=== PATIENT | female | born 1975 | race Caucasian/White ===

== ENCOUNTER → 2016-08-01 | Outpatient (CLI) | payer BC ==
[~2016-08-01] MED LIST: BACTRIM DS 8001 TA1 PO; CIPROFLOXACIN500 MG PO; DULCOLAX10 MG PO; IBUPROFEN 30 M800 MG PO; LASIX40 MG PO; MYLICON, MYLANT80 MG PO; NAPROSYN500 MG PO; NKHM; PERCOCET 325 MG1 TA2 PO; PERCOCET 325 MG1 TA5 PO; POTASSIUM CHLORIDE PO; TRAMADOL HCL50 MG PO; VICODIN ES 7501 TAB PO
--- NOTE | ~2016-08-01 | ST ---
[place], [place] EXERCISE STRESS TEST REPORT NAME: SUDHAKAR MATTHEW [facility] #: [id number] UNIT #: [id number] ROOM: DOCTOR: MYRTLE KEY MD BIRTHDATE: [birth year] DOS: 08/01/2016 STUDY: Exercise treadmill stress test. REFERRING PHYSICIAN: [facility]. INDICATIONS: Atypical chest pain. The patient's baseline EKG showed normal sinus rhythm, nonspecific ST-T wave changes. The patient's baseline heart rate was 99 with a blood pressure 148/88. The patient exercised for a total of 6 minutes and 32 seconds. Maximum heart rate achieved was 167, which represents 92% of maximum predicted. The patient was noted to have [address] depressions in the inferolateral leads with nonlimiting chest pressure at peak. The patient's peak activity level is 7 METs. The patient's peak blood pressure is 168/92. SUMMARY OF FINDINGS: 1. Abnormal treadmill stress test with [address] depression in the inferolateral leads with exertional chest pain noted that was nonlimiting at peak. 2. The patient's Casey Treadmill score is -2.5 and portending intermediate risk stress. 3. Would recommend further evaluation with the addition of perfusion scan imaging. MYRTLE KEY MD CM:STRESS:EXERCISE STRESS TEST REPORT [id number] MYRTLE KEY MD
== END | disposition home or self-care (01) ==
LOC: CARD 02:54
DX: R07.89 Other chest pain (principal)

== ENCOUNTER → 2016-08-05 | Outpatient (CLI) | payer BC ==
--- NOTE | ~2016-08-05 | ST ---
[place], [place] EXERCISE STRESS TEST REPORT [id number] UNIT #: [id number] ROOM: DOCTOR: KARLEE GOMES MD BIRTHDATE: [birth year] DOS: 08/05/2016 PHARMACOLOGIC STRESS TEST INDICATIONS: Chest pain. PROCEDURE: The patient was given a rapid infusion of regadenoson 0.4 mg intravenously followed by a saline flush. She experienced nausea and an unusual sensation with dyspnea. Her resting heart rate of 89 aylin to 136. The resting blood pressure of 116/82 aylin to 158/94. Her resting electrocardiogram showed sinus rhythm. She had a normal tachycardic heart rate response to the infusion and no diagnostic electrocardiographic changes were noted. Forty seconds after the infusion of regadenoson, radionuclide was administered. IMPRESSION: 1. Well tolerated infusion of regadenoson. 2. Radionuclide administered. Please see the separate imaging report for further details of the patient's stress test results. KARLEE GOMES MD CM:STRESS:EXERCISE STRESS TEST REPORT [id number] KARLEE GOMES MD
== END | disposition home or self-care (01) ==
LOC: CARD 02:45
DX: R94.39 Abnormal result of other cardiovascular function study (principal); R07.89 Other chest pain

== ENCOUNTER → 2016-09-08 | Outpatient (CLI) | payer BC | END | disposition home or self-care (01) | LOC: CARD 08:16 | DX: I08.1 Rheumatic disorders of both mitral and tricuspid valves (principal); R07.89 Other chest pain ==

== ENCOUNTER → 2016-10-03 | Outpatient (CLI) | payer BC ==
[2016-10-03 18:53] LABS: BASO % 0.5 % (0.0-1.0); HEMATOCRIT 38.9 % (37.0-47.0); HEMOGLOBIN 13.2 g/dl (12.0-16.0); MEAN CELL VOLUME 86.4 fl (81.0-99.0); MEAN CORPUSCULAR HGB 29.3 pg (27.0-31.0); MEAN CORPUSCULAR HGB CONC 33.9 g/dl (33.0-37.0); MONO # 0.7 10*3/uL (0.1-1.0); MONO % 8.2 % (3.0-9.0); NEUT # 5.5 10*3/uL (2.3-7.9); NEUT % 67.1 % (47.0-73.0); PLATELET COUNT AUTOMATED 265 10*3/uL (130-400); RED CELL DISTRI WIDTH 12.1 % (0-14.5); WHITE BLOOD COUNT 8.2 10*3/uL (4.8-10.8)
[2016-10-03 19:13] LABS: ALBUMIN 3.8 gm/dl (3.1-4.5); ALKALINE PHOSPHATASE 109 U/L (45-117); BILIRUBIN, TOTAL 0.4 mg/dl (0.2-1.0); BUN 10 mg/dl (7-24); CARBON DIOXIDE 29 mmol/L (21-32); CHLORIDE 102 mmol/L (98-107); EST GLOM FILT AFRICAN AMERICAN > 60 ml/min; GLUCOSE 111 mg/dL (65-99); POTASSIUM 3.5 mmol/L (3.5-5.1); SGOT/AST 11 IU/L (3-35); SGPT/ALT 19 U/L (12-78); SODIUM 138 mmol/L (136-145); TOTAL PROTEIN 7.5 gm/dL (6.4-8.2)
== END | disposition home or self-care (01) ==
LOC: LAB 17:46
PROVIDERS: Family Medicine Adult Medicine
DX: N39.0 Urinary tract infection, site not specified (principal); R05 Cough; R31.9 Hematuria, unspecified; R80.9 Proteinuria, unspecified; R09.89 Other specified symptoms and signs involving the circulatory and respiratory systems

== ENCOUNTER → 2016-10-28 | Outpatient (CLI) | payer BC ==
--- NOTE | ~2016-10-28 | PF ---
[place], [place] PULMONARY FUNCTION TEST NAME: SUDHAKAR MATTHEW UNIT #: [id number] ROOM: DOCTOR: SHAHNAZ ZAMUDIO MD,BALBINA BIRTHDATE: [birth year] DOS: 10/30/2016 The test was ordered by Dr. Laisha Claros. HISTORY: The patient was noted as a 41-year-old outpatient, female, height of 60 inches, weight of 212 pounds, BMI of 41.4. The patient reported symptoms of chronic cough, which was noted nonproductive. Symptoms of dyspnea with exertion rare wheezing were also noted. Tobacco use. SPIROMETRY: The FVC was noted 2.95 liters as 91% predicted value normal. FEV1 was noted 2.50 liters, 94% predicted value normal. Ratio of FEV1/FVC was recorded as 85%. Flow volume loop was noted normal. Lung volume; thoracic gas volume recorded 56%, residual volume of 84%, total lung capacity 92%. Lung volumes were noted normal. The lung diffusion noted normal. The patient's airway resistance, passive conductance noted normal. IMPRESSION: Normal pulmonary function testing with history of chronic nonproductive cough and other respiratory symptom. If the diagnosis of bronchial asthma is still considered with the clinical history, the patient was recommended about methacholine challenge testing or additional assessment for that. BALBINA CHRISTIE MD CM:PFREPORT:PULMONARY FUNCTION TEST [id number] BALBINA ZAMUDIO MD
== END | disposition home or self-care (01) ==
LOC: CP 07:01
DX: R05 Cough (principal)

== ENCOUNTER → 2017-12-04 | Outpatient (CLI) | payer BC ==
--- NOTE | ~2017-12-04 | ST ---
[place], [place] EXERCISE STRESS TEST REPORT NAME: SUDHAKAR MATTHEW UNIT #: [id number] ROOM: DOCTOR: KARLEE GOMES MD BIRTHDATE: [birth year] DOS: 12/04/2017 EXERCISE STRESS TEST INDICATIONS: Irregular heart, dyspnea, chest discomfort. PROCEDURE: The patient walked for 9 minutes on a full Refugio protocol stress test and stopped for fatigue. She did not have any chest pain, nausea or unusual dyspnea. Her resting heart rate of 72 aylin to a peak of 195, which represented 108% of her maximum predicted heart rate at a workload of 10 METS. Her resting blood pressure 120/84 aylin to 156/78. She stopped for fatigue. The resting electrocardiogram was normal. With exercise, she had up to [address] segment depression in the lateral leads; however, the ST segment depressions resolved within less than 1 minute of recovery. Casey treadmill score was -1, which represents an intermediate risk. Clinically, however, this was a normal stress test with excellent exercise capacity. IMPRESSION: 1. Excellent exercise capacity without chest pain. The patient did have EKG changes, which resolved in less than a minute of recovery. 2. Low risk exercise stress test. KARLEE GOMES MD CM:STRESS:EXERCISE STRESS TEST REPORT [id number] KARLEE GOMES MD
== END | disposition home or self-care (01) ==
LOC: CARD 01:38
DX: I49.9 Cardiac arrhythmia, unspecified (principal); R06.00 Dyspnea, unspecified

== ENCOUNTER 2019-06-23 07:42 | Emergency (ER) | payer OTHER ==
[~2019-06-23] VITALS: Ht 152.4 cm; Wt 92.1 kg
[2019-06-23 08:26] LABS: BASO # 0.1 10*3/uL (0.0-0.1); BASO % 1.1 % (0.0-1.0); EOS # 0.2 10*3/uL (0.0-0.4); EOS % 3.1 % (1.0-4.0); HEMATOCRIT 41.5 % (37.0-47.0); LYMPH # 1.2 10*3/uL (1.3-4.4); LYMPH % 22.4 % (27.0-41.0); MEAN CELL VOLUME 87.2 fl (81.0-99.0); MEAN CORPUSCULAR HGB 29.4 pg (27.0-31.0); MEAN CORPUSCULAR HGB CONC 33.7 g/dl (33.0-37.0); MONO # 0.4 10*3/uL (0.1-1.0); MONO % 7.5 % (3.0-9.0); NEUT # 3.6 10*3/uL (2.3-7.9); NEUT % 65.7 % (47.0-73.0); PLATELET COUNT AUTOMATED 261 10*3/uL (130-400); RED BLOOD COUNT 4.76 10*6/uL (4.10-5.10); RED CELL DISTRI WIDTH 12.1 % (0-14.5); WHITE BLOOD COUNT 5.5 10*3/uL (4.8-10.8)
[2019-06-23 08:33] LABS: ACT PARTIAL THROMBO TIME 24.9 SECONDS (20.0-32.1); INTERNATIONAL NORM RATIO 0.9 (2.0-3.5)
[2019-06-23 08:42] LABS: ALBUMIN 3.7 gm/dl (3.1-4.5); ALKALINE PHOSPHATASE 83 U/L (45-117); BUN 13 mg/dl (7-24); CHLORIDE 108 mmol/L (98-107); CREATININE 0.65 mg/dL (0.55-1.02); POTASSIUM 4.3 mmol/L (3.5-5.1); SGOT/AST 13 IU/L (3-35); SGPT/ALT 26 U/L (12-78); SODIUM 140 mmol/L (136-145); TOTAL PROTEIN 7.3 gm/dL (6.4-8.2)
[2019-06-23 08:43] LABS: TROPONIN I < 0.015 ng/ml (<0.045)
[2019-06-23 09:32] VITALS: BP 124/78
== END 2019-06-23 10:11 | disposition home or self-care (01) ==
LOC: ED 07:42
PROVIDERS: Emergency Medicine
DX: S20.229A Contusion of unspecified back wall of thorax, initial encounter (principal); R55 Syncope and collapse; R00.2 Palpitations; R06.02 Shortness of breath; M54.2 Cervicalgia; Z79.899 Other long term (current) drug therapy; Z90.710 Acquired absence of both cervix and uterus; Z88.1 Allergy status to other antibiotic agents; Z88.8 Allergy status to other drugs, medicaments and biological substances; Z90.49 Acquired absence of other specified parts of digestive tract; Z98.51 Tubal ligation status; W19.XXXA Unspecified fall, initial encounter; Y93.01 Activity, walking, marching and hiking; Y92.098 Other place in other non-institutional residence as the place of occurrence of the external cause; Y99.8 Other external cause status

== ENCOUNTER → 2019-07-19 | Outpatient (CLI) | payer OTHER | END | disposition home or self-care (01) | LOC: LAB 08:47 → CARD 09:00 | DX: I95.9 Hypotension, unspecified (principal); R00.0 Tachycardia, unspecified; R00.2 Palpitations; R55 Syncope and collapse; E55.9 Vitamin D deficiency, unspecified ==

== ENCOUNTER → 2019-08-08 | Outpatient (CLI) | payer OTHER ==
[2019-08-08 17:22] LABS: ALBUMIN 3.7 gm/dl (3.1-4.5); ALKALINE PHOSPHATASE 85 U/L (45-117); BUN 11 mg/dl (7-24); CHLORIDE 106 mmol/L (98-107); CREATININE 0.72 mg/dL (0.55-1.02); POTASSIUM 3.6 mmol/L (3.5-5.1); SGOT/AST 7 IU/L (3-35); SGPT/ALT 21 U/L (12-78); SODIUM 138 mmol/L (136-145); THYROXINE (T4) TOTAL 6.7 ug/dl (4.8-13.9); TOTAL PROTEIN 7.3 gm/dL (6.4-8.2)
[2019-08-08 17:28] LABS: THYROID STIM HORMONE (HS) 0.768 uIU/ml (0.358-4.75)
== END | disposition home or self-care (01) ==
LOC: LAB 16:05
PROVIDERS: Internal Medicine Cardiovascular Disease
DX: R55 Syncope and collapse (principal); I95.9 Hypotension, unspecified; R00.0 Tachycardia, unspecified; R00.2 Palpitations

== ENCOUNTER → 2021-01-21 | Outpatient (CLI) | payer OTHER | END | disposition home or self-care (01) | LOC: MAMMO 07:27 | PROVIDERS: ATTEND Nurse Practitioner Family | DX: Z12.31 Encounter for screening mammogram for malignant neoplasm of breast (principal) ==

== ENCOUNTER → 2021-02-07 | Outpatient (CLI) | payer OTHER | END | disposition home or self-care (01) | LOC: MAMMO 12:51 | PROVIDERS: ATTEND Nurse Practitioner Family | DX: N63.21 Unspecified lump in the left breast, upper outer quadrant (principal); N60.02 Solitary cyst of left breast; R92.8 Other abnormal and inconclusive findings on diagnostic imaging of breast ==

== ENCOUNTER → 2022-03-06 | Day surgery (SDC) | payer OTHER ==
[~2022-03-06] VITALS: Ht 152.4 cm; Wt 97.5 kg
[~2022-03-06] MED LIST changes: +VITAMIN D310 MC1 PO
[2022-03-06 08:24] VITALS: BP 107/64
[2022-03-06 08:39] VITALS: BP 141/93
[2022-03-06 08:52] VITALS: BP 149/90
== END | disposition home or self-care (01) ==
LOC: SDC 03-03 10:15
PROVIDERS: ATTEND Surgery
DX: Z12.11 Encounter for screening for malignant neoplasm of colon (principal); D12.4 Benign neoplasm of descending colon; K62.1 Rectal polyp; Z88.1 Allergy status to other antibiotic agents; Z90.710 Acquired absence of both cervix and uterus; F41.9 Anxiety disorder, unspecified; F32.A Depression, unspecified; G43.909 Migraine, unspecified, not intractable, without status migrainosus; Z95.0 Presence of cardiac pacemaker; Z79.899 Other long term (current) drug therapy; Z98.890 Other specified postprocedural states

== ENCOUNTER 2022-03-27 13:23 | Emergency (ER) | payer OTHER ==
[2022-03-27 13:36] VITALS: BP 154/96
[2022-03-27] MEDS ORDERED: BENZONATATE100 M1 PO (16:37)
[2022-03-27] MEDS ORDERED: PREDNISONE20 M1 PO (16:37)
== END 2022-03-27 16:35 | disposition home or self-care (01) ==
LOC: ED 13:23
DX: J40 Bronchitis, not specified as acute or chronic (principal); Z20.822 Contact with and (suspected) exposure to COVID-19; Z88.1 Allergy status to other antibiotic agents; Z88.8 Allergy status to other drugs, medicaments and biological substances; Z90.710 Acquired absence of both cervix and uterus; Z90.49 Acquired absence of other specified parts of digestive tract; Z98.890 Other specified postprocedural states

== ENCOUNTER → 2022-05-08 | Outpatient (CLI) | payer OTHER ==
[~2022-05-08] MED LIST changes: +BENZONATATE100 M1 PO; +PREDNISONE20 M1 PO
== END | disposition home or self-care (01) ==
LOC: MAMMO 13:00
PROVIDERS: ATTEND Nurse Practitioner Family
DX: N63.21 Unspecified lump in the left breast, upper outer quadrant (principal); N63.25 Unspecified lump in the left breast, overlapping quadrants; N63.15 Unspecified lump in the right breast, overlapping quadrants; R92.1 Mammographic calcification found on diagnostic imaging of breast

== ENCOUNTER 2022-05-20 18:14 | Emergency (ER) | payer OTHER ==
[~2022-05-20] VITALS: Wt 95.3 kg
[2022-05-20 20:18] LABS: BASO % 0.4 % (0.0-1.0); HEMATOCRIT 41.5 % (37.0-47.0); LYMPH # 1.4 10*3/uL (1.3-4.4); LYMPH % 19.7 % (27.0-41.0); MEAN CELL VOLUME 86.5 fl (81.0-99.0); MEAN CORPUSCULAR HGB 29.2 pg (27.0-31.0); MEAN CORPUSCULAR HGB CONC 33.7 g/dl (33.0-37.0); MEAN PLATELET VOLUME 10.3 fl (9.6-12.3); MONO # 0.5 10*3/uL (0.1-1.0); MONO % 6.9 % (3.0-9.0); NEUT # 5.2 10*3/uL (2.3-7.9); NEUT % 72.7 % (47.0-73.0); PLATELET COUNT AUTOMATED 276 10*3/uL (130-400); RED CELL DISTRI WIDTH 12.1 % (0-14.5); WHITE BLOOD COUNT 7.1 10*3/uL (4.8-10.8)
[2022-05-20 20:32] LABS: ALKALINE PHOSPHATASE 104 U/L (46-116); BUN 12 mg/dl (9-23); CHLORIDE 101 mmol/L (98-107); LIPASE 23 U/L (12-53); POTASSIUM 3.2 mmol/L (3.4-5.1); SGPT/ALT 47 U/L (10-49); TOTAL PROTEIN 6.8 gm/dL (6.0-8.0)
[2022-05-20 21:09] LABS: BILIRUBIN 1+ (Negative); BLOOD 2+ (Negative); CLARITY Cloudy (Clear); GLUCOSE Negative (Negative); KETONE Trace (Negative); LEUKO ESTERASE Trace (Negative); NITRITE Negative (Negative); PH 5.5 (4.5-8.0); SPECIFIC GRAVITY >= 1.030 (1.001-1.030)
[2022-05-20 21:24] LABS: EPITHELIAL CELLS 41-50
[2022-05-20 21:25] LABS: COLOR Orange (Yellow)
[2022-05-21 02:12] VITALS: BP 109/73
== END 2022-05-21 05:03 | disposition home or self-care (01) ==
LOC: ED 18:14
PROVIDERS: Emergency Medicine
DX: K52.9 Noninfective gastroenteritis and colitis, unspecified (principal); Z20.822 Contact with and (suspected) exposure to COVID-19; Z88.1 Allergy status to other antibiotic agents; Z88.8 Allergy status to other drugs, medicaments and biological substances; Z79.899 Other long term (current) drug therapy; Z90.710 Acquired absence of both cervix and uterus; Z90.49 Acquired absence of other specified parts of digestive tract; Z98.51 Tubal ligation status; Z98.890 Other specified postprocedural states

== ENCOUNTER → 2022-05-30 | Outpatient (CLI) | payer OTHER | END | disposition home or self-care (01) | LOC: RAD 12:54 | PROVIDERS: ATTEND Nurse Practitioner Family | DX: K52.9 Noninfective gastroenteritis and colitis, unspecified (principal); Z90.49 Acquired absence of other specified parts of digestive tract ==

== ENCOUNTER → 2022-06-14 | Outpatient (CLI) | payer OTHER | END | disposition home or self-care (01) | LOC: CT 00:56 | PROVIDERS: ATTEND Nurse Practitioner Family | DX: K76.89 Other specified diseases of liver (principal); N20.0 Calculus of kidney; N28.1 Cyst of kidney, acquired; K57.32 Diverticulitis of large intestine without perforation or abscess without bleeding ==

== ENCOUNTER 2023-05-12 03:21 | Emergency (ER) | payer OTHER ==
[~2023-05-12] VITALS: Ht 152.4 cm; Wt 91.2 kg
[2023-05-12 03:43] VITALS: BP 145/104
[2023-05-12] MEDS ORDERED: Ondansetron Hydrochloride 4 MG/2 ML VIAL IV ONE (04:00)
[2023-05-12] MEDS ORDERED: SODIUM CHLORIDE 0.9% 1,000 ML IV ONE (04:05)
[2023-05-12] MEDS ORDERED: HYDROmorphONE Hydrochloride 0.5 MG/0.5 ML SYRINGE IV ONE (04:05)
[2023-05-12 04:20] LABS: BASO % 0.6 % (0.0-1.0); EOS % 0.3 % (1.0-4.0); HEMATOCRIT 43.8 % (37.0-47.0); LYMPH % 28.1 % (27.0-41.0); MEAN CELL VOLUME 88.3 fl (81.0-99.0); MEAN CORPUSCULAR HGB 28.8 pg (27.0-31.0); MEAN CORPUSCULAR HGB CONC 32.6 g/dl (33.0-37.0); MEAN PLATELET VOLUME 11.5 fl (9.6-12.3); MONO # 0.5 10*3/uL (0.1-1.0); MONO % 7.5 % (3.0-9.0); NEUT # 4.6 10*3/uL (2.3-7.9); NEUT % 63.4 % (47.0-73.0); PLATELET COUNT AUTOMATED 263 10*3/uL (130-400); RED BLOOD COUNT 4.96 10*6/uL (4.10-5.10); RED CELL DISTRI WIDTH 12.2 % (0-14.5); WHITE BLOOD COUNT 7.2 10*3/uL (4.8-10.8)
[2023-05-12 04:37] LABS: ALKALINE PHOSPHATASE 91 U/L (46-116); BUN 9 mg/dl (9-23); CHLORIDE 104 mmol/L (98-107); POTASSIUM 3.7 mmol/L (3.4-5.1); SGPT/ALT 17 U/L (5-49); TOTAL PROTEIN 7.3 gm/dL (6.0-8.0)
[2023-05-12] MEDS ORDERED: Ketorolac Tromethamine 15 MG/ML VIAL IV ONE ×2 (05:10→05:35)
[2023-05-12] MEDS ORDERED: Metoclopramide Hydrochloride 10 MG/2 ML AMP IV ONE (05:20)
[2023-05-12 06:28] LABS: BILIRUBIN Negative (Negative); BLOOD 2+ (Negative); CLARITY Cloudy (Clear); COLOR Yellow (Yellow); GLUCOSE Negative (Negative); KETONE Trace (Negative); LEUKO ESTERASE Negative (Negative); NITRITE Negative (Negative); UROBILINOGEN 0.2 E.U./dl (0.0-1.0)
[2023-05-12 06:44] LABS: BACTERIA 3+; CALCIUM OXALATE CRYSTALS 2+; EPITHELIAL CELLS TNTC
[2023-05-12] MEDS ORDERED: PERCOCET 5-3251 EACH PO (06:58)
[2023-05-12] MEDS ORDERED: Acetaminophen/Oxycodone 5 MG/325 MG TABLET PO ONE (07:00)
== END 2023-05-12 07:12 | disposition home or self-care (01) ==
LOC: ED 03:21
PROVIDERS: Emergency Medicine
DX: N20.0 Calculus of kidney (principal); Z88.1 Allergy status to other antibiotic agents; Z88.6 Allergy status to analgesic agent; Z90.710 Acquired absence of both cervix and uterus; Z98.890 Other specified postprocedural states; Z98.51 Tubal ligation status; Z90.49 Acquired absence of other specified parts of digestive tract

== ENCOUNTER → 2023-06-15 | Outpatient (CLI) | payer OTHER ==
[~2023-06-15] MED LIST changes: +PERCOCET 5-3251 EACH PO
[2023-06-15 16:34] LABS: BASO # 0.1 10*3/uL (0.0-0.1); BASO % 0.7 % (0.0-1.0); EOS # 0.1 10*3/uL (0.0-0.4); EOS % 0.6 % (1.0-4.0); HEMATOCRIT 41.1 % (37.0-47.0); LYMPH # 1.7 10*3/uL (1.3-4.4); LYMPH % 20.6 % (27.0-41.0); MEAN CELL VOLUME 86.7 fl (81.0-99.0); MEAN CORPUSCULAR HGB 28.9 pg (27.0-31.0); MEAN CORPUSCULAR HGB CONC 33.3 g/dl (33.0-37.0); MEAN PLATELET VOLUME 11.6 fl (9.6-12.3); MONO # 0.6 10*3/uL (0.1-1.0); MONO % 7.2 % (3.0-9.0); NEUT # 5.9 10*3/uL (2.3-7.9); NEUT % 70.8 % (47.0-73.0); PLATELET COUNT AUTOMATED 245 10*3/uL (130-400); RED BLOOD COUNT 4.74 10*6/uL (4.10-5.10); RED CELL DISTRI WIDTH 12.5 % (0-14.5); WHITE BLOOD COUNT 8.3 10*3/uL (4.8-10.8)
[2023-06-15 17:05] LABS: ALKALINE PHOSPHATASE 84 U/L (46-116); BUN 13 mg/dl (9-23); CHLORIDE 105 mmol/L (98-107); CHOLESTEROL 190 mg/dL (<200); LDL CHOLESTEROL 129 mg/dL (9-159); POTASSIUM 3.9 mmol/L (3.4-5.1); SGPT/ALT 28 U/L (5-49); TOTAL PROTEIN 7.2 gm/dL (6.0-8.0); TRIGLYCERIDES 107 mg/dl (<150)
== END | disposition home or self-care (01) ==
LOC: LAB 16:21
PROVIDERS: ATTEND Nurse Practitioner Family
DX: N20.0 Calculus of kidney (principal); E78.5 Hyperlipidemia, unspecified; I49.9 Cardiac arrhythmia, unspecified

== ENCOUNTER → 2023-08-14 | Outpatient (CLI) | payer OTHER | END | disposition home or self-care (01) | LOC: RAD 16:17 | PROVIDERS: ATTEND Nurse Practitioner Family | DX: M79.642 Pain in left hand (principal); M79.89 Other specified soft tissue disorders; M25.532 Pain in left wrist ==